=== PATIENT | female | born 1950 | race Two or more races ===

== ENCOUNTER 2024-08-19 17:22 | Inpatient (IN) | payer OTHER ==
[~2024-08-19] VITALS: Ht 154.9 cm; Wt 110.2 kg
[~2024-08-19 17:22] MED LIST: CATAFLAM50 MG PO; CODE1TAB37 PO
[2024-08-19] MEDS ORDERED: IRBESARTAN300 MG PO (17:38)
[2024-08-19] MEDS ORDERED: ROSUVASTATIN CA10 MG PO (17:38)
--- NOTE | 2024-08-19 17:53 | NUR ---
PTE ALERTA Y ORIENTADA X3 REFIERE DOLOR ABDOMINAL INTENSO, SE OBSERVA ABDOMEN DISTENDIO POR HERNIA, DURA, CALIENTE Y CON DOLOR AL TACTO, NOTIFICA HANNAH VOMITADO EL CR DE HOY Y AL MOMENTO DE VITALES, PTE PRESENTA BP DE 180/110 MANUAL. SE REALIZA EKG POR PROTOCOLO Y SE PRESENTA A MD BENJAMIN. SE UBICA PTE.
[2024-08-19] MEDS ORDERED: MORPHINE SULFATE 4 MG/ML CARTRIDGE IV ONE (18:45)
[2024-08-19] MEDS ORDERED: FAMOTIDINE/PF 20 MG/2 ML VIAL IV PUSH ONE (19:00)
[2024-08-19] MEDS ORDERED: 0.9 % SODIUM CHLORIDE 1,000 ML IV SCH (19:00)
[2024-08-19] MEDS ORDERED: ONDANSETRON HCL 2 MG/ML VIAL IV ONE (19:00)
[2024-08-19 19:05] LABS: HEMATOCRIT 37.8 % (36.0-45.00); MEAN CELL VOLUME 89.3 fL (80.00-100.00); MEAN CORPUSCULAR HEMOGLOBIN 30.7 pg (27.00-32.0); MEAN CORPUSCULAR HGB CONC 34.3 g/dl (32.0-36.0); PLATELET COUNT 306 K/uL (150-450); RED BLOOD COUNT 4.23 M/uL (4.00-6.00); RED CELL DISTRIBUTION WIDTH 13.6 % (11.5-14.5)
--- NOTE | 2024-08-19 19:19 | NUR ---
SE ORIENTA A PACIENTE SOBRE TX MEDICO, REFIERE ENTENDER. SE REALIZAN MUESTRAS DE LABORATORIO BAJO MEDIDAS ASEPTICAS. SE ADMINISTRAN MEDICAMENTOS MARIN ORDEN MEDICA. SE COORDINA SONOGRAMA. PENDIENTE RE-EVALUACION MEDICA.
[2024-08-19 21:19] LABS: ALBUMIN 3.4 gm/dL (3.4-5.0); BILIRUBIN TOTAL 0.55 mg/dL (0.3-1.2); CALCIUM 9.7 mg/dL (8.5-10.1); CREATININE SERUM 0.98 mg/dL (0.55-1.02); GFR 55.79; GLOBULINA 4.3 G/DL (2.4-3.5); POTASSIUM 4.44 mEq/L (3.5-5.1); TOTAL PROTEIN 7.7 gm/dL (6.4-8.2)
--- NOTE | 2024-08-19 23:01 | NUR ---
SE RECIBE A PACIENTE ALERTA Y ORIENTADA X3 EN CAMA A NIVEL DE PISO JUNTO CON BARRANDAS ELEVADAS. CANALIZADA CON #2O EN LT ARM BAJANDO 0.9NSS A 100ML/HR, AREA SE OBSERVA PATENTE Y SUZANNA DE PROCESO DE INFECCION. PENDIENTE A RE EVALUAR.
[2024-08-19] MEDS ORDERED: KETOROLAC TROMETHAMINE 15 MG VIAL IV ONE (23:15)
[2024-08-20] MEDS ORDERED: CEFTRIAXONE SODIUM 1,000 MG VIAL IV STA (01:04)
--- NOTE | 2024-08-20 01:39 | NUR ---
SE ADMINISTRAN MEDICAMENTOS MARIN ORDEN MEDICA Y BAJO MEDIDAS ASEPTICAS. SE HACE ENTREGA DE ENVASE PARA U/A. PENDIENTE A CT PO.
[2024-08-20 04:44] LABS: URINE APPEARANCE Clear; URINE BILIRRUBIN Negative (NEGATIVE); URINE BLOOD Negative; URINE COLOR Yellow; URINE GLUCOSE Negative (NEGATIVE); URINE KETONE Negative (NEGATIVE); URINE LEUKOCYTE Negative; URINE NITRATE Negative; URINE PROTEIN Negative (NEGATIVE); URINE UROBILINOGEN 0.2 E.U./dl
[2024-08-20 04:45] LABS: URINE CAST 3.53 uL (0.0-1.40); URINE EPITHELIAL CELLS 38.3 uL (0.0-38.8); URINE WBC 14.7 uL (0.0-23.2)
[2024-08-20] MEDS ORDERED: CIPROFLOXACIN IN 5 % DEXTROSE 400 MG/200 ML PIGGYBAG IV STA (06:51)
[2024-08-20] MEDS ORDERED: METRONIDAZOLE/SODIUM CHLORIDE 500 MG/100 ML PIGGYBACK IV STA (06:51)
[2024-08-20] MEDS ORDERED: METRONIDAZOLE/SODIUM CHLORIDE 100 ML IV SCH (13:26)
[2024-08-20] MEDS ORDERED: 0.9 % SODIUM CHLORIDE 1,000 ML IV SCH (13:30)
[2024-08-20] MEDS ORDERED: ONDANSETRON HCL 4 MG in 0.9 % SODIUM CHLORIDE 50 ML IV PRN (13:30)
[2024-08-20] MEDS ORDERED: MORPHINE SULFATE 2 MG/ML CARTRIDGE IV SCH (14:00)
[2024-08-20 16:11] LABS: INR 1.06; PARTIAL THROMBOPLASTIN TIME 27.3 SECONDS (22.0-34.0); PROTHROMBIN TIME 11.5 SECONDS (9.0-11.5)
[2024-08-20] MEDS ORDERED: FAMOTIDINE/PF 20 MG in 0.9 % SODIUM CHLORIDE 8 ML IV PUSH SCH (17:00)
[2024-08-20] MEDS ORDERED: ENALAPRILAT DIHYDRATE 1.25 MG/ML VIAL IV SCH (18:00)
[2024-08-20 18:14] VITALS: BP 164/81; O2SAT 97
[2024-08-20 20:57] VITALS: BP 164/81; O2SAT 97
[2024-08-20] MEDS ORDERED: CIPROFLOXACIN IN 5 % DEXTROSE 200 ML IV SCH (21:00)
[2024-08-21 02:02] VITALS: BP 90/60; O2SAT 92
[2024-08-21 05:02] LABS: HEMATOCRIT 33.9 % (36.0-45.00); HEMOGLOBIN 11.3 g/dL (12.0-15.00); MEAN CELL VOLUME 92.3 fL (80.00-100.00); MEAN CORPUSCULAR HEMOGLOBIN 30.8 pg (27.00-32.0); MEAN CORPUSCULAR HGB CONC 33.4 g/dl (32.0-36.0); PLATELET COUNT 283 K/uL (150-450); RED BLOOD COUNT 3.67 M/uL (4.00-6.00); RED CELL DISTRIBUTION WIDTH 13.6 % (11.5-14.5)
[2024-08-21 05:38] LABS: ALBUMIN 2.9 gm/dL (3.4-5.0); BILIRUBIN TOTAL 0.51 mg/dL (0.3-1.2); CALCIUM 8.6 mg/dL (8.5-10.1); CREATININE SERUM 1.02 mg/dL (0.55-1.02); GFR 53.27; GLOBULINA 3.2 G/DL (2.4-3.5); MAGNESIUM 1.8 mg/dL (1.8-2.4); POTASSIUM 4.55 mEq/L (3.5-5.1); TOTAL PROTEIN 6.1 gm/dL (6.4-8.2)
[2024-08-21 08:00] VITALS: BP 163/89; O2SAT 96
[2024-08-21] MEDS ORDERED: IRBESARTAN 300 MG TABLET PO SCH (14:46)
[2024-08-21 15:40] VITALS: BP 184/89
[2024-08-21] MEDS ORDERED: NIFEDIPINE 30 MG TAB.SA.OSM PO SCH (22:28)
[2024-08-22 03:26] VITALS: BP 113/71; BP 147/83; O2SAT 94; O2SAT 98
[2024-08-22 08:36] VITALS: BP 160/77; O2SAT 97
[2024-08-22 12:54] VITALS: BP 118/61
[2024-08-22 16:54] VITALS: BP 151/75
[2024-08-23 02:01] VITALS: BP 119/67; O2SAT 98
[2024-08-23 07:40] VITALS: BP 130/60
[2024-08-23 17:21] VITALS: BP 129/77; O2SAT 93
[2024-08-24 00:28] VITALS: BP 154/81
[2024-08-24 07:00] VITALS: BP 130/71
[2024-08-24 17:39] VITALS: BP 141/74; O2SAT 96
== END 2024-08-24 20:14 | disposition home or self-care (01) | DRG 394 ==
LOC: ER 17:25 → MEDI 08-20 13:51 → MEDJ 08-24 17:04 → MEDI 08-24 17:11
PROVIDERS: Emergency Medicine; General Practice; ADMIT Internal Medicine; ATTEND Internal Medicine
PROC: BW40ZZZ Ultrasonography of Abdomen (ICD-10-PCS; principal; 2024-08-19)
PROC: BW21ZZZ Computerized Tomography (CT Scan) of Abdomen and Pelvis (ICD-10-PCS; 2024-08-20)
DX: K43.6 Other and unspecified ventral hernia with obstruction, without gangrene (principal); K56.690 Other partial intestinal obstruction; I10 Essential (primary) hypertension; E78.5 Hyperlipidemia, unspecified; D64.9 Anemia, unspecified; E66.01 Morbid (severe) obesity due to excess calories